=== PATIENT | female | born 1945 | race Caucasian/White ===

== ENCOUNTER 2017-03-28 08:52 | Emergency (ER) | payer MEDICARE, OTHER ==
[~2017-03-28] VITALS: Ht 167.6 cm; Wt 81.4 kg
[~2017-03-28 08:52] MED LIST: OMEP20CA11 PO
[2017-03-28 08:54] VITALS: BP 135/77; PULSE 87; RESP 12; O2SAT 99
--- NOTE | 2017-03-28 09:06 | ED.REPORT ---
HPI-Chest Pain 40 and Over Date of Service Mar 28, 2017 ED Provider: Dominguez Avitia MD Pt is a generally healthy 72 y/o female presenting to the ED c/o intermittent rapid irregular heart palpitations onset this morning after waking up. She c/o associated lightheadedness. Pt denies CP, SOB. She does not have a diagnosed history of a-fib although this has happened once before 15 years ago and it resolved spontaneously. She is not anticoagulated and has never experienced a syncopal episode. She has been having back and left-sided abdominal pain intermittently for 2 years for which is being worked up by her PCP and is so far negative. Nursing Notes Stated Complaint: HEART POUNDING Chief Complaint: Dysrhythmia/Cardiac Nursing Notes Reviewed: Yes Allergies: Coded Allergies: cephalexin (Verified Allergy, Unknown, 08/19/15) Scheduled Apixaban (Eliquis) 5 Mg Tablet 5 MG PO BID Metoprolol Succinate ER (Metoprolol Succinate ER) 25 Mg Tab.er.24h 12.5 MG PO DAILY Omeprazole (Omeprazole) 20 Mg Capsule.dr 20 MG PO DAILY General Time Seen by MD: 09:05 Chief Complaint Other (palps) Hx Obtained From: Patient Arrived By: Walk-in Sudden in Onset?: Yes Onset Occurred: 1 - 4 hours ago Symptom Duration: Intermittent Location: : Back Quality: Painful Severity: Current: No pain currently Severity: Maximum: Moderate Similar Sx Previous: Yes Past Medical History Past Medical History Hx diverticulitis Arthritis in knees GERD Past Surgical History Appendectomy Hysterectomy TUbal ligation Left foot Smoking History Never Smoker Social History Alcohol Use: Denies alcohol use Drug Use: Denies drug use Ambulatory Status Independent Review of Systems Constitutional: Reports: Weakness - generalized, Denies: Chills, Fever Respiratory: Denies: Non-productive cough, Shortness of breath Cardiovascular: Reports: Palpitations, Denies: Chest pain GI: Denies: Nausea, Vomiting Neurologic: Reports: Lightheaded, Denies: Focal weakness, Numbness Complete sys rev & neg: except as marked. Physical Exam Initial Vital Signs Vital Signs (First) Date Time Temp Pulse Resp B/P Pulse Ox O2 Delivery O2 Flow Rate FiO2 03/28/17 08:54 36.4 87 12 135/77 99 Room Air Initial VS: Reviewed, Vital signs normal Head / Eyes: Atraumatic, Normocephalic, PERRL ENT: Mucous membranes moist, Conjunctiva normal, No scleral icterus Neck: Supple, Full range of motion Extremities: Vascular intact, Neuro intact, No swelling Skin: Warm, Dry, No cyanosis Neurologic: Alert, Oriented, Nonfocal Psychiatric: Mood/affect normal, Behavior normal, Normal thought content General/Constitutional: Awake, Alert, No acute distress, Well appearing, Cooperative, Not toxic appearing Respiratory / Chest: Breath sounds NL, Breath sounds = bilat, No respiratory distress, No rales, No rhonchi, No wheezing, No retractions, No stridor Cardiovascular: Heart sounds NL, No gallop, No murmurs, No rubs, Cap refill not delayed, Peripheral circulation NL Heart Rate / Rhythm: Positive: Irreg irregular rhythm, Tachycardia Abdomen: Atraumatic, Soft, Non-tender, No guarding, No rebound, No distention, No palpable mass Interpretation & Diagnostics Lab Results Interpretation Result Diagram: 03/28/17 0920 03/28/17 0920 Test 03/28/17 09:20 White Blood Count 5.9th/mm3 (3.8-10.1) Red Blood Count 4.73mil/mm3 (3.90-5.20) Hemoglobin 14.4g/dL (12.0-15.6) Hematocrit 43.3% (35.0-46.0) Mean Corpuscular Volume 91.5fL (81-100) Mean Corpuscular Hemoglobin 30.4pg (27.0-35.0) Mean Corpuscular Hemoglobin Concent 33.3% (32.0-37.0) Red Cell Distribution Width 13.6% (12.3-15.4) Platelet Count 242bil/L (150-400) Neutrophils (%) (Auto) 60.0% (40-74) Lymphocytes (%) (Auto) 30.2% (14-46) Monocytes (%) (Auto) 7.6% (4-12) Eosinophils (%) (Auto) 1.5% (0-5) Basophils (%) (Auto) 0.5% (0-3) Prothrombin Time 10.3sec (8.1-12.5) Prothromb Time International Ratio 0.96ratio Sodium Level 140mEq/L (134-144) Potassium Level 4.8mEq/L (3.5-5.2) Chloride Level 101mEq/L (97-108) Carbon Dioxide Level 26mmol/L (18-29) Blood Urea Nitrogen 12mg/dL (8-27) Creatinine 0.52mg/dL (0.57-1.00) Estimat Glomerular Filtration Rate 167mL/min (>59) Glucose Level 100mg/dL (60-99) Calcium Level 9.6mg/dL (8.5-10.1) Magnesium Level 2.1mg/dL (1.6-2.6) Total Bilirubin 0.5mg/dL (0.0-1.2) Aspartate Amino Transf (AST/SGOT) 29U/L (0-50) Alanine Aminotransferase (ALT/SGPT) 18U/L (0-32) Alkaline Phosphatase 84U/L (25-165) Troponin T 0.010ug/L (0.0-0.011) Total Protein 7.7g/dL (6.4-8.4) Albumin 4.2g/dL (3.4-5.0) ECG Interpretation ECG Interpretation: Atrial fibrillation rate 113 No previous available for comparison Time: 09:12 Interpreted by: ED physician ECG Interpretation: Sinus rhythm rate 62 Changed from previous which was a-fib with RvR Time: 11:10 Interpreted by: ED physician Normal ECG Interpretation: No acute ischemic changes X-Ray Chest Interpretation Chest Xray Interpretation: IMPRESSION: Source of chest pain is not seen. Dictated by: Leonardo Mehta M.D. on 03/28/2017 at 9:26 Approved by: Leonardo Mehta M.D. on 03/28/2017 at 9:26 View: Portable, 1 view Interpretation / Wet Read by: Interpret - Radiologist Re-Eval/Medical Decision Med Decision/Clinical Course 72-year-old female history of paroxysmal atrial fibrillation presenting with palpitations since this morning. Arrival she is in atrial fibrillation with RVR which resolved with IV diltiazem. She is spontaneously converted while here. I spoke with cardiology about her and they recommended starting eliquis and metoprolol 12.5 mg extended release daily. She will follow up with cardiology and they will contact her for follow-up within the next couple weeks. She is advised to follow-up with primary doctor Next 2-3 days. Return precautions given. Time of Eval: 11:03 Re-Evaluation/Progress Note: Pt rechecked. Going in and out of a-fib now. Rate is well controlled. Informed pt of plan for treatment. Pt understands and agrees with plan for treatment. F/U instructions and RTER warnings given. All questions addressed. Consultation : Referral / Consult Name: Dia Gil MD Consulted With: Cardiology Call Returned at: 10:56 Automation And Controls Manager: Agrees with eval, Agrees with plan Note: No cardioversion. Give metoprolol XL 25 mg daily and eliquis 5 mg BID. Her title i instructional assistant with call her to get a f/u. 12:00 - called back regarding spontaneous conversion. Now recommends 12.5 mg metoprolol daily. Recommends see if there is a 2 second pause when converting. - The monitor history was reviewed and there was no 2 second pause. Counseled Regarding: Diagnosis, Lab results, Need for follow-up, When/why to return to ED Discharge & Departure Primary Impression: Atrial fibrillation with rapid ventricular response Additional Impression: Paroxysmal atrial fibrillation Disposition: Home Discharge Condition All VS Reviewed: Yes Condition: Improved Patient Instructions: A-fib (Atrial Fibrillation) (ED) Additional Instructions: Your symptoms were caused by an irregular heart rhythm called atrial fibrillation. You spontaneously converted back to a normal rhythm by the end of your stay. Labs and chest x-ray today were reassuring. I spoke with our manager social services today (Dr. Gil) who recommended you be started on some heart medications. Please begin taking these as directed. Her title i instructional assistant will call you to set up an appointment to be seen in follow-up. If you begin to feel fatigued after taking these medications, you can stop the Metoprolol. Return to the emergency department if you experience chest pain, recurrent palpitations, trouble breathing, profuse sweating, lightheadedness, passing out , one-sided numbness or weakness, speech changes, vision changes, confusion, or for other concerning symptoms. Follow-up with your primary care doctor in 1-2 days for a recheck. Referrals: Otf Cooper MD (PCP) Dia Gil MD Crit Care Except Billable Proc Time Spent: 30-74 minutes (30 minutes) Services Performed: Patient management by me, Time spent at bedside, Reviewing test results, Reviewing imaging, Discussing patient care, Documentation in record Scribe Attestation Portions of this note were transcribed by Grant Parker. I, Dr. Avitia, personally performed the history, physical exam and medical decision-making; I reviewed and confirmed the accuracy of the information in the transcribed note. Signed by Fadi Santillan, 03/28/17929 copies to: Otf Cooper MD; Dia Gil MD, Ben M MD Mar 28, 2017 09:06 GRANT PARKER Mar 28, 2017 09:16
[2017-03-28] MEDS ORDERED: Diltiazem 5 mg/mL 5 mL Inj IVPUSH ONE (09:25)
[2017-03-28 09:28] VITALS: BP 144/85; PULSE 115; RESP 16; O2SAT 97
--- NOTE | 2017-03-28 09:28 | DRSVH ---
PROCEDURE: X-RAY CHEST ONE VIEW, PORTABLE ([id number]) INDICATIONS: CP TECHNIQUE: One view of the chest was acquired. COMPAR[facility]: [facility], [place], [facility] 14[facility]25[facility]. FINDINGS: Surgical changes and devices: None. Lungs and pleura: No pleural effusions or pneumothorax. Lungs are clear. Mediastinum: Mediastinal contours appear normal. Heart size is normal. Bones and chest wall: No suspicious bony lesions. Overlying soft tissues appear unremarkable. IMPRESSION: Source of chest pain is not seen. Dictated by: Leonardo Mehta M.D. on 03/28/2017 at 9:26 Approved by: Leonardo Mehta M.D. on 03/28/2017 at 9:26
[2017-03-28 09:37] LABS: BASOPHILS % (AUTO) 0.5 % (0-3); EOSINOPHILS % (AUTO) 1.5 % (0-5); MONOCYTES % (AUTO) 7.6 % (4-12); Mean Corpuscular Hemoglobin 30.4 pg (27.0-35.0); Mean Corpuscular Volume 91.5 fL (81-100); Platelet Count 242 bil/L (150-400)
[2017-03-28 09:45] VITALS: BP 129/57; PULSE 75; RESP 14; O2SAT 97
[2017-03-28 10:05] LABS: INR 0.96 ratio
[2017-03-28 10:12] LABS: TROPONIN T 0.01 ug/L (0.0-0.011)
[2017-03-28 10:23] LABS: Magnesium 2.1 mg/dL (1.6-2.6)
[2017-03-28] MEDS ORDERED: APIX5TAB PO (10:58)
[2017-03-28] MEDS ORDERED: METO25TA99 PO ×2 (10:58→12:07)
[2017-03-28 11:09] VITALS: BP 109/53; PULSE 57; RESP 14; O2SAT 97
[2017-03-28 12:28] VITALS: BP 125/54; PULSE 52; RESP 21; O2SAT 97
== END 2017-03-28 12:30 | disposition home or self-care (01) ==
LOC: SED 08:52
DX: I48.0 Paroxysmal atrial fibrillation (principal); K21.9 Gastro-esophageal reflux disease without esophagitis; Z88.1 Allergy status to other antibiotic agents